=== PATIENT | male | born 1990 | race Caucasian/White ===

== ENCOUNTER 2017-05-23 13:49 | Emergency (ER) | payer OTHER ==
--- NOTE | ~2017-05-23 | CT4 ---
[facility] A Service of [facility] RADIOLOGY TEXT RESULTS PATIENT: JON JIANG LOCATION: SED : [birth year] UNIT #: [id number] AGE: [address]: Nikolay Gamez MD SEX: M ORDER DR: [id number] [place] [id number] E MR#: [id number] #: [id number] NAME: JON JIANG : 1990 SEX: M STUDY DATE/TIME: 05/23/2017 14:41 UNIT: SED ROOM: STUDY DESCRIPTION: CT Abd and Pelv Wo Cont Attending Physician: Nikolay Gamez M.D. Ordering Physician: Nikolay Gamez M.D. Primary Care Physician: Primary Care Physician No MEDICAL IMAGING REPORT This report is preliminary unless electronic signature is present. EXAM CT of the abdomen and pelvis without contrast INDICATION Low back pain for 1 week on the left. Concern for kidney stone. TECHNIQUE CT of the abdomen and pelvis was performed without contrast. Coronal and sagittal reformatted images were obtained. This CT exam was performed with one or more of the following radiation dose reduction techniques: automatic exposure control, adjustment of mA and/or kV according to patient size, and iterative reconstruction. Comparison is made with 12/01/2009. FINDINGS Minimal atelectasis in the lung bases. Liver is unremarkable. The gallbladder and spleen are unremarkable. Multiple tiny intrarenal stones bilaterally. There is moderate left hydronephrosis. There is a 4 mm obstructing stone in the mid-left ureter. There is stranding about the left kidney. The adrenal glands are unremarkable. Pancreas is unremarkable. PELVIS: Small fat-containing inguinal hernias bilaterally. Prostatic calcifications. Colon is unremarkable. No free fluid. Bone windows are unremarkable. IMPRESSION 1. A 4 mm obstructing stone in the mid-left ureter with moderate left-sided hydronephrosis. [facility] A Service of [facility] RADIOLOGY TEXT RESULTS PATIENT: JON JIANG LOCATION: SED : 90 UNIT #: [id number] AGE: [address]: Nikolay Gamez MD SEX: M ORDER DR: 2. Multiple tiny nonobstructing stones elsewhere in both kidneys. Dictated by... Fadi Kerr M.D. THIS IS AN ELECTRONICALLY VERIFIED REPORT Fadi Kerr M.D. at 05/24/2017 7:29 AM GUANACO/erika TD: 05/24/2017 00:44 JOB #: [id number] MEDICAL IMAGING REPORT Page 1 of 1
[~2017-05-23 13:49] MED LIST: AMOXICILLIN875 MG PO; FLEXERIL PO; KETOPROFEN PO; NO MEDICATIONS; SUDAFED30 M1 PO; ULTRAM PO; ZOFRAN ODT4 MG PO
[2017-05-23 16:21] LABS: URINE SOURCE CLEAN CATCH
[2017-05-23 16:27] LABS: MICRO INDICATED? YES; URINE APPEARANCE HAZY; URINE BILIRUBIN NEG (NEG); URINE BLOOD TRACE-LYSED (NEG); URINE COLOR YELLOW; URINE GLUCOSE NEG (NORM); URINE KETONE NEG (NEG); URINE LEUKOCYTE ESTERASE NEG (NEG); URINE NITRATE NEG (NEG); URINE PH 6.5 (5-8); URINE PROTEIN NEG (NEG); URINE SPECIFIC GRAVITY 1.015 (1.003-1.035); URINE UROBILINOGEN 0.2 MG/DL (NORM)
[2017-05-23 16:51] LABS: URINE WBC 0-2 /[HPF] (0-5)
[2017-05-23 16:52] LABS: CULTURE INDICATED? NO; URINE AMORPHOUS SEDIMENT AMORP URATES; URINE BACTERIA NEG (NEG)
== END 2017-05-23 16:53 | disposition home or self-care (01) ==
LOC: SED 13:49
PROVIDERS: Emergency Medicine
DX: N13.2 Hydronephrosis with renal and ureteral calculous obstruction (principal)
CPT/HCPCS: 36415; 74176; 81003; 96361; 96374; 96375; 96376; 99284; J1170; J1885; J2405